=== PATIENT | female | born 2000 | race Caucasian/White ===

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

== ENCOUNTER 2019-08-30 10:39 | Emergency (ER) | payer MEDICAID ==
[~2019-08-30] VITALS: Ht 157.5 cm; Wt 61.0 kg
[~2019-08-30 10:39] MED LIST: ONDA4TAB7 PO; PREN1TAB60 PO
[2019-08-30 10:42] VITALS: BP 109/66
--- NOTE | 2019-08-30 11:17 | NUR ---
PT TO ROOM FROM LOBBY
--- NOTE | 2019-08-30 11:26 | NUR ---
THIS IS A 19 YEAR OLD FEMALE WHO C/O "PAST 2 DAYS A TERRIBLE COUGH, MY THROAT FEELS LIKE ITS GOING TO CLOSE UP. I HAD A HEADACHE BUT IT'S BETTER NOW. MY NECK IS SORE AND I CAN'T MOVE IT VERY WELL. I HAVE AN EAR ACHE ON AND OFF. I HAVE HAD THE HOT AND COLD SWEATS."
--- NOTE | 2019-08-30 11:40 | NUR ---
TASK RN: PT AMBULATORY WITH STEADY GAIT BACK FROM RADIOLOGY AND TO BATHROOM TO PROVIDE URINE SAMPLE.
--- NOTE | 2019-08-30 11:51 | NUR ---
TASK RN: URINE COLLECTED AND SENT. PT RESTING ON GURNEY. POTTER. PHARMACY REQUEST SEND FOR MEDICATION.
[2019-08-30 12:00] LABS: CULTURE INDICATED? YES; MICROSCOPIC AUTO
[2019-08-30] MEDS ORDERED: PROMETHAZINE/COD. 10MG/6.25MG/5 ML ORAL SOL PO ONE (12:00)
--- NOTE | 2019-08-30 12:03 | NUR ---
TASK RN: PT MEDICATED PER EMAR.
[2019-08-30 12:11] LABS: BASOPHILS # (AUTO) 0.05 x10^3/uL (0-0.3); BASOPHILS % (AUTO) 0 % (0-1); EOSINOPHILS # (AUTO) 0.22 x10^3/uL (0-0.8); EOSINOPHILS % (AUTO) 2 % (1-7); LYMPHOCYTES # (AUTO) 2.97 x10^3/uL (1-6.1); LYMPHOCYTES % (AUTO) 26 % (22-44); MD NO; MEAN CORPUSCULAR HEMOGLOBIN 31.7 pg (27.0-34.8); MEAN CORPUSCULAR HGB CONC 33.4 g/dL (32.4-35.8); MEAN CORPUSCULAR VOLUME 94.8 fL (80-100); MEAN PLATELET VOLUME 7.9 fL (7.4-10.4); MONOCYTES # (AUTO) 1.04 x10^3/uL (0-1.4); MONOCYTES % (AUTO) 9 % (2-9); NEUTROPHILS # (AUTO) 7.25 x10^3/uL (1.8-8.0); NEUTROPHILS % (AUTO) 63 % (42-75); PLATELET COUNT 325 x10^3/uL (130-400); RED CELL DISTRIBUTION WIDTH 13.5 % (9.6-15.2)
[2019-08-30 12:23] LABS: ALBUMIN 3.7 g/dL (3.4-5.0); ANION GAP 7 mmol/L (5-15); CHLORIDE 112 mmol/L (98-107); CREATININE 0.65 mg/dL (0.55-1.02)
--- NOTE | 2019-08-30 12:44 | NUR ---
TASK RN: PT AWARE OF DC PLAN. GETTING DRESSED NOW.
== END 2019-08-30 13:25 | disposition home or self-care (01) ==
LOC: ED 12:14
DX: J06.9 Acute upper respiratory infection, unspecified (principal); F17.200 Nicotine dependence, unspecified, uncomplicated; H92.09 Otalgia, unspecified ear
CPT/HCPCS: 36415; 71046; 80048; 81001; 82040; 85025; 86308; 87040; 87086; 99284

== ENCOUNTER 2020-04-01 10:32 | Emergency (ER) | payer MEDICAID ==
[~2020-04-01] VITALS: Ht 157.5 cm; Wt 62.3 kg
[2020-04-01] MEDS ORDERED: ONDANSETRON 2MG/ML, 2ML ONE (10:52)
[2020-04-01] MEDS ORDERED: SODIUM CHLORIDE FLUSH 10ML SYR IVF ONE (11:00)
[2020-04-01] MEDS ORDERED: MORPHINE SULFATE 4 MG/ML, 1ML IVPush PRN (11:00)
[2020-04-01] MEDS ORDERED: ONDANSETRON 2MG/ML, 2ML IVPush ONE (11:00)
[2020-04-01] MEDS ORDERED: SODIUM CHLORIDE 0.9% 1,000ML IVBOLUS ONE (11:00)
--- NOTE | 2020-04-01 11:07 | NUR ---
PT STATES N/V/D SINCE 0100 THIS MORNING. STATES HER DAUGHTER IS SICK TOO. PT IV STARTED, IVF INFUSING. PT ON MONITORS, VSS. PT UNABLE TO URINATE, AWARE NEEDS UA. CONT TO MONITORS.
[2020-04-01 11:11] LABS: MEAN CORPUSCULAR HEMOGLOBIN 30.6 pg (27.0-34.8); MEAN PLATELET VOLUME 7.5 fL (7.4-10.4); PLATELET COUNT 315 x10^3/uL (130-400); RED BLOOD COUNT 4.84 x10^6/uL (3.82-5.3); RED CELL DISTRIBUTION WIDTH 13.3 % (9.6-15.2)
[2020-04-01 11:23] LABS: ALANINE AMINOTRANSFERASE 18 U/L (12-78); ALBUMIN 4.2 g/dL (3.4-5.0); ANION GAP 7 mmol/L (5-15); CALCIUM 9.1 mg/dL (8.5-10.1); CHLORIDE 111 mmol/L (98-107); CREATININE 0.81 mg/dL (0.55-1.02)
[2020-04-01 11:28] LABS: ALKALINE PHOSPHATASE 91 U/L (45-117); BILIRUBIN,TOTAL 0.7 mg/dL (0.2-1.0); TOTAL PROTEIN 8.1 g/dL (6.4-8.2)
--- NOTE | 2020-04-01 11:49 | NUR ---
URINE COLLECTED, SENT TO LAB.
[2020-04-01 12:05] LABS: BASOPHILS # (AUTO) 0.01 x10^3/uL (0-0.1); BASOPHILS % (AUTO) 0 % (0-1); EOSINOPHILS # (AUTO) 0.04 x10^3/uL (0-0.4); EOSINOPHILS % (AUTO) 0 % (1-7); LYMPHOCYTES # (AUTO) 0.68 x10^3/uL (1-3.4); LYMPHOCYTES % (AUTO) 5 % (22-44); MD SCAN; MONOCYTES # (AUTO) 0.42 x10^3/uL (0.2-0.8); MONOCYTES % (AUTO) 3 % (2-9); NEUTROPHILS # (AUTO) 11.46 x10^3/uL (1.8-6.8); NEUTROPHILS % (AUTO) 91 % (42-75)
[2020-04-01 12:17] LABS: MICROSCOPIC NOT IND
--- NOTE | 2020-04-01 12:45 | NUR ---
PT RESTING IN BED, AWIATING US RESULTS. NO DISTRESS, CONT TO MONITOR.
--- NOTE | 2020-04-01 13:55 | NUR ---
PER ERMD, PT OK FOR D/C. PT GIVEN D/C PAPERWORK, VERBALIZED UNDERSTANDING. PT WITH STEADY GAIT UPON D/C.
[2020-04-01 13:58] VITALS: BP 116/71
== END 2020-04-01 14:11 | disposition home or self-care (01) ==
LOC: ED 12:08
DX: A08.4 Viral intestinal infection, unspecified (principal); R11.2 Nausea with vomiting, unspecified; R10.13 Epigastric pain; R19.7 Diarrhea, unspecified; R10.10 Upper abdominal pain, unspecified
CPT/HCPCS: 36415; 76700; 80053; 81003; 83690; 84703; 85025; 96361; 96374; 99284; J2405; J7030

== ENCOUNTER 2020-05-18 17:10 | Emergency (ER) | payer MEDICAID ==
[~2020-05-18] VITALS: Ht 157.5 cm; Wt 61.8 kg
--- NOTE | 2020-05-18 17:47 | NUR ---
PT TO ULTRASOUND PRIOR TO BLOOD SAMPLING OR MEDICATION ADMIN.
[2020-05-18] MEDS ORDERED: ONDANSETRON 2MG/ML, 2ML IVPush ONE (18:00)
[2020-05-18] MEDS ORDERED: MORPHINE SULFATE 4 MG/ML, 1ML IVPush PRN (18:00)
[2020-05-18] MEDS ORDERED: ONDANSETRON 2MG/ML, 2ML ONE (18:02)
[2020-05-18] MEDS ORDERED: MORPHINE SULFATE 4 MG/ML, 1ML ONE (18:02)
[2020-05-18 18:23] LABS: BASOPHILS # (AUTO) 0.04 x10^3/uL (0-0.1); BASOPHILS % (AUTO) 1 % (0-1); EOSINOPHILS # (AUTO) 0.08 x10^3/uL (0-0.4); EOSINOPHILS % (AUTO) 1 % (1-7); LYMPHOCYTES # (AUTO) 2.33 x10^3/uL (1-3.4); LYMPHOCYTES % (AUTO) 28 % (22-44); MD NO; MEAN CORPUSCULAR HEMOGLOBIN 30.8 pg (27.0-34.8); MEAN CORPUSCULAR HGB CONC 33.4 g/dL (32.4-35.8); MEAN CORPUSCULAR VOLUME 92.2 fL (80-100); MEAN PLATELET VOLUME 7.9 fL (7.4-10.4); MONOCYTES # (AUTO) 0.98 x10^3/uL (0.2-0.8); MONOCYTES % (AUTO) 12 % (2-9); NEUTROPHILS # (AUTO) 4.98 x10^3/uL (1.8-6.8); NEUTROPHILS % (AUTO) 59 % (42-75); PLATELET COUNT 257 x10^3/uL (130-400); RED BLOOD COUNT 4.48 x10^6/uL (3.82-5.3); RED CELL DISTRIBUTION WIDTH 13.4 % (9.6-15.2)
[2020-05-18 18:29] LABS: ANION GAP 7 mmol/L (5-15); CALCIUM 9.3 mg/dL (8.5-10.1); CHLORIDE 110 mmol/L (98-107)
[2020-05-18 18:35] LABS: ALANINE AMINOTRANSFERASE 13 U/L (12-78); ALKALINE PHOSPHATASE 101 U/L (45-117); BILIRUBIN,TOTAL 0.4 mg/dL (0.2-1.0); CREATININE 0.72 mg/dL (0.55-1.02); TOTAL PROTEIN 7.7 g/dL (6.4-8.2)
--- NOTE | 2020-05-18 19:01 | NUR ---
ALDO (RN) IS ASSUMING CARE OF THIS PT AT THIS TIME. SBAR WAS EXCHANGED AT THE BEDSIDE.
[2020-05-18] MEDS ORDERED: KETOROLAC 30 MG/1 ML ONE (19:24)
[2020-05-18] MEDS ORDERED: KETOROLAC 30 MG/1 ML IVPush ONE (19:30)
[2020-05-18 19:46] VITALS: BP 102/65
== END 2020-05-18 19:47 | disposition home or self-care (01) ==
LOC: ED 19:44
DX: N83.292 Other ovarian cyst, left side (principal); N83.291 Other ovarian cyst, right side; N93.9 Abnormal uterine and vaginal bleeding, unspecified; R10.2 Pelvic and perineal pain; R42 Dizziness and giddiness; R55 Syncope and collapse
CPT/HCPCS: 36415; 76830; 80053; 84702; 85025; 96374; 96375; 99284; J1885; J2270; J2405

== ENCOUNTER 2020-12-27 12:21 | Emergency (ER) | payer MEDICAID ==
[~2020-12-27] VITALS: Ht 157.5 cm; Wt 62.5 kg
--- NOTE | 2020-12-27 12:45 | NUR ---
PT RESTING COMFORTABLY ON GURNEY. S/O AT BEDSIDE. PT AWAITING ERP. CALL BUTTON IN REACH. PT ON CONTINUOUS SPO2 MONITOR AND BP CUFF SET TO Q30 MINS.
--- NOTE | 2020-12-27 12:46 | NUR ---
DR. GALINDO AT BEDSIDE.
[2020-12-27] MEDS ORDERED: HYDROcodone/APAP 5/325 TABLET ONE (12:58)
[2020-12-27] MEDS ORDERED: HYDROcodone/APAP 5/325 TABLET PO ONE (13:00)
--- NOTE | 2020-12-27 13:00 | NUR ---
URINE COLLECTED AND SENT TO LAB.
[2020-12-27 13:14] LABS: BASOPHILS % (AUTO) 1 % (0-1); EOSINOPHILS % (AUTO) 1 % (1-7); LYMPHOCYTES % (AUTO) 37 % (22-44); MEAN CORPUSCULAR HGB CONC 34.2 g/dL (32.4-35.8); MONOCYTES % (AUTO) 9 % (2-9); NEUTROPHILS % (AUTO) 52 % (42-75); PLATELET COUNT 284 x10^3/uL (130-400); RED BLOOD COUNT 4.31 x10^6/uL (3.82-5.3); RED CELL DISTRIBUTION WIDTH 13.6 % (9.6-15.2)
[2020-12-27 13:14] LABS: MICROSCOPIC NOT IND
[2020-12-27 13:18] LABS: MD NO
[2020-12-27 13:23] LABS: ALANINE AMINOTRANSFERASE 16 U/L (12-78); ALBUMIN 3.9 g/dL (3.4-5.0); ANION GAP 3 mmol/L (5-15); CALCIUM 8.6 mg/dL (8.5-10.1); CHLORIDE 111 mmol/L (98-107); CREATININE 0.68 mg/dL (0.55-1.02)
[2020-12-27 13:25] LABS: ALKALINE PHOSPHATASE 84 U/L (45-117); BILIRUBIN,TOTAL 0.3 mg/dL (0.2-1.0); TOTAL PROTEIN 7.4 g/dL (6.4-8.2)
[2020-12-27 15:32] VITALS: BP 104/69
--- NOTE | 2020-12-27 15:33 | NUR ---
Patient given discharge instructions and they have confirmed that they understand the instructions. Patient ambulatory with steady gait.
== END 2020-12-27 15:34 | disposition home or self-care (01) ==
LOC: ED 14:38
DX: R10.11 Right upper quadrant pain (principal); R11.0 Nausea
CPT/HCPCS: 36415; 76700; 80053; 81003; 83690; 84703; 85025; 99284

== ENCOUNTER 2021-03-27 13:04 | Emergency (ER) | payer MEDICAID ==
[~2021-03-27] VITALS: Ht 157.5 cm; Wt 60.4 kg
--- NOTE | 2021-03-27 13:59 | NUR ---
PATIENT TO ROOM FROM LOBBY
[2021-03-27 14:08] LABS: MICROSCOPIC INDICATED
[2021-03-27] MEDS ORDERED: SODIUM CHLORIDE FLUSH 10ML SYR IVF ONE (15:00)
[2021-03-27 15:06] LABS: BASOPHILS % (AUTO) 1 % (0-1); EOSINOPHILS % (AUTO) 1 % (1-7); LYMPHOCYTES % (AUTO) 37 % (22-44); MEAN CORPUSCULAR HEMOGLOBIN 31.9 pg (27.0-34.8); MEAN CORPUSCULAR HGB CONC 34.9 g/dL (32.4-35.8); MEAN PLATELET VOLUME 7.9 fL (7.4-10.4); MONOCYTES % (AUTO) 10 % (2-9); NEUTROPHILS % (AUTO) 51 % (42-75); PLATELET COUNT 283 x10^3/uL (130-400); RED BLOOD COUNT 4.34 x10^6/uL (3.82-5.3); RED CELL DISTRIBUTION WIDTH 12.7 % (9.6-15.2)
[2021-03-27 15:17] LABS: ALANINE AMINOTRANSFERASE 18 U/L (12-78); ALBUMIN 3.7 g/dL (3.4-5.0); ANION GAP 4 mmol/L (5-15); CALCIUM 8.8 mg/dL (8.5-10.1); CHLORIDE 111 mmol/L (98-107)
[2021-03-27 15:22] LABS: ALKALINE PHOSPHATASE 91 U/L (45-117); BILIRUBIN,TOTAL 0.4 mg/dL (0.2-1.0); CREATININE 0.64 mg/dL (0.55-1.02); TOTAL PROTEIN 7.5 g/dL (6.4-8.2)
[2021-03-27] MEDS ORDERED: OMNIPAQUE 350 MG/ML, 100ML BOTTLE ONE (16:15)
[2021-03-27] MEDS ORDERED: HYDROcodone/APAP 5/325 TABLET ONE (17:39)
[2021-03-27] MEDS ORDERED: HYDROcodone/APAP 5/325 TABLET PO ONE (18:00)
[2021-03-27 18:08] VITALS: BP 122/74
== END 2021-03-27 18:10 | disposition home or self-care (01) ==
LOC: ED 13:34
DX: N83.291 Other ovarian cyst, right side (principal)
CPT/HCPCS: 36415; 74177; 80053; 81001; 83690; 84703; 85025; 87086; 99285; Q9967

== ENCOUNTER 2021-06-01 14:40 | Emergency (ER) | payer MEDICAID ==
[~2021-06-01] VITALS: Ht 157.5 cm; Wt 59.6 kg
[2021-06-01 14:51] VITALS: BP 125/73
[2021-06-01 15:27] LABS: BASOPHILS % (AUTO) 1 % (0-1); EOSINOPHILS % (AUTO) 2 % (1-7); LYMPHOCYTES % (AUTO) 42 % (22-44); MEAN CORPUSCULAR HEMOGLOBIN 31.5 pg (27.0-34.8); MEAN CORPUSCULAR HGB CONC 34.3 g/dL (32.4-35.8); MEAN PLATELET VOLUME 8.1 fL (7.4-10.4); MONOCYTES % (AUTO) 8 % (2-9); NEUTROPHILS % (AUTO) 48 % (42-75); PLATELET COUNT 307 x10^3/uL (130-400); RED BLOOD COUNT 4.57 x10^6/uL (3.82-5.3); RED CELL DISTRIBUTION WIDTH 13.5 % (9.6-15.2)
[2021-06-01 15:32] LABS: ALANINE AMINOTRANSFERASE 19 U/L (12-78); ALBUMIN 3.9 g/dL (3.4-5.0); ANION GAP 5 mmol/L (5-15); CHLORIDE 111 mmol/L (98-107)
[2021-06-01 15:37] LABS: ALKALINE PHOSPHATASE 90 U/L (45-117); BILIRUBIN,TOTAL 0.5 mg/dL (0.2-1.0); CREATININE 0.71 mg/dL (0.55-1.02); TOTAL PROTEIN 7.8 g/dL (6.4-8.2)
[2021-06-01 16:48] LABS: MICROSCOPIC INDICATED
--- NOTE | 2021-06-01 21:03 | NUR ---
NA X1 WHEN CALLED FOR ROOM
--- NOTE | 2021-06-01 21:28 | NUR ---
NA X 2
--- NOTE | 2021-06-01 21:53 | NUR ---
NA X 3
== END 2021-06-01 21:55 | disposition left against medical advice (07) ==
LOC: ED 15:00
DX: R10.11 Right upper quadrant pain (principal); R94.31 Abnormal electrocardiogram [ECG] [EKG]
CPT/HCPCS: 36415; 80053; 81001; 83690; 84703; 85025; 87086; 93005; 99284

== ENCOUNTER 2021-06-21 17:07 | Emergency (ER) | payer MEDICAID ==
[~2021-06-21] VITALS: Ht 157.5 cm; Wt 60.0 kg
[2021-06-21 20:15] VITALS: BP 124/71
== END 2021-06-21 20:17 | disposition home or self-care (01) ==
LOC: ED 19:04
DX: G89.29 Other chronic pain (principal); R10.9 Unspecified abdominal pain
CPT/HCPCS: 36415; 76700; 80053; 81001; 83690; 84703; 85025; 87086; 93005; 96374; 96375; 99285; J1885; J2270